=== PATIENT | male | born 1985 | race Caucasian/White ===

== ENCOUNTER 2017-04-28 08:24 | Emergency (ER) | payer BC ==
[~2017-04-28] VITALS: Ht 182.9 cm; Wt 59.0 kg
[2017-04-28 08:35] VITALS: BP 138/88
[2017-04-28] MEDS ORDERED: HYDR-971 PO (09:15)
[2017-04-28] MEDS ORDERED: BENZ100C PO (09:15)
[2017-04-28] MEDS ORDERED: AMOX1TAB61 PO (09:15)
--- NOTE | 2017-04-28 09:16 | PHYS DOC ---
Past History Past Medical History: No Pertinent History Past Surgical History: No Surgical History Alcohol Use: None Drug Use: None Adult General Chief Complaint Chief Complaint: EARACHE/EAR PAIN HPI HPI 31-year-old nonsmoking male patient complaining of nasal congestion and cough and sinus pressure and pain for the last 4- 5 days. Patient complaining of right ear pain yesterday and left ear pain since this morning as a sharp pain and rated his pain 8/10. Patient denies fever and chills, ear discharge, nausea and vomiting and productive cough. Patient did not have sick contacts. Review of Systems Review of Systems Constitutional: Denies fever or chills [] Eyes: Denies change in visual acuity, redness, or eye pain [] HENT: Reports earache, nasal congestion , sinus pressure, sore throat [] Respiratory: Denies shortness of breath , reports cough[] Cardiovascular: No additional information not addressed in HPI [] GI: Denies abdominal pain, nausea, vomiting, bloody stools or diarrhea [] : Denies dysuria or hematuria [] Musculoskeletal: Denies back pain or joint pain [] Integument: Denies rash or skin lesions [] Neurologic: Denies headache, focal weakness or sensory changes [] Endocrine: Denies polyuria or polydipsia [] All other systems were reviewed and found to be within normal limits, except as documented in this note. Current Medications Current Medications Current Medications Medications (Trade) Dose Ordered Sig/Thania Start Time Stop Time Status Last Admin Dose Admin Acetaminophen/ Hydrocodone Bitart (Lortab 5/325) 1 tab 1X ONCE 04/28/17 09:30 04/28/17 09:31 Allergies Allergies Allergies Coded Allergies Type Severity Reaction Last Updated Verified No Known Drug Allergies 04/28/17 No Physical Exam Physical Exam Constitutional: Well developed, well nourished, mild distress, non-toxic appearance. [] HENT: Normocephalic, atraumatic, bilateral external ears normal, bilateral tympanic membranes erythema more in the left side, oropharynx moist, pharyngeal erythema without oral exudates, nasal congestion and erythema and edema, maxillary sinus tenderness. [] Eyes: PERRLA, EOMI, conjunctiva normal, no discharge. [] Neck: Normal range of motion, no tenderness, supple, no stridor. [] Cardiovascular:Heart rate regular rhythm, no murmur [] Lungs & Thorax: Bilateral breath sounds clear to auscultation [] Skin: Warm, dry, no erythema, no rash. [] Neurologic: Alert and oriented X 3, normal motor function, normal sensory function, no focal deficits noted. [] Psychologic: Affect normal, judgement normal, mood normal. [] Current Patient Data Vital Signs Vital Signs Date Time Temp Pulse Resp B/P (MAP) Pulse Ox O2 Delivery O2 Flow Rate FiO2 04/28/17 08:35 97.7 94 16 97 Room Air EKG EKG [] Radiology/Procedures Radiology/Procedures [] Course & Med Decision Making Course & Med Decision Making Evolution of patient in ER showed 31-year-old female patient with complaining of left and right earache after recent URI. Patient had tympanic membrane erythema in bilateral sides more in left. Patient treated with hydrocodone in ER felt better. Plan discharge patient home with diagnosis of URI and otitis media with prescription of Augmentin. Dragon Disclaimer Dragon Disclaimer This electronic medical record was generated, in whole or in part, using a voice recognition dictation system. Departure Departure: Impression: Primary Impression: Otitis media Additional Impression: Upper respiratory infection Disposition: HOME, SELF-CARE (At 0911) Condition: IMPROVED Referrals: LAYLA HERNANDEZ MD (PCP) Patient Instructions: Otitis Media, Adult, Upper Respiratory Infection, Adult Additional Instructions: Drink plenty of liquids Follow up with your physician in not getting better in 3-5 days Scripts Benzonatate (TESSALON PERLE) 100 Mg Capsule 1 CAP PO TID, #21 CAP Prov: FLORIAN BRADFORD MD 04/28/17 Hydrocodone Bit/Acetaminophen (NORCO 5-325 TABLET) 1 Each Tablet 1-2 TAB PO Q4-6HRS, #12 TAB Prov: FLORIAN BRADFORD MD 04/28/17 Amoxicillin/Potassium Clav (AUGMENTIN 875-125 TABLET) 1 Each Tablet 1 TAB PO BID, #14 TAB Prov: FLORIAN BRADFORD MD 04/28/17 Problem Qualifiers FLORIAN BRADFORD MD Apr 28, 2017 09:16
[2017-04-28] MEDS ORDERED: HYDROcodone/APAP 5/325MG 1 TAB TABLET PO ONE (09:30)
== END 2017-04-28 09:23 | disposition home or self-care (01) ==
LOC: ER 08:24
DX: H66.93 Otitis media, unspecified, bilateral (principal); J06.9 Acute upper respiratory infection, unspecified
CPT/HCPCS: 99283